=== PATIENT | female | born 1940 | race Caucasian/White ===

== ENCOUNTER 2022-08-29 19:19 | Inpatient (IN) | payer MEDICARE ==
[~2022-08-29] VITALS: Ht 152.4 cm; Wt 35.4 kg
[~2022-08-29 19:19] MED LIST: ACET650T11 PO; ALBU2.5V13 NEB; ALPR0.255 PO; ESCI5TAB PO; FLUT1DIS28 IH; IPRA0.2S18 IH; MOME17SP; NICO1PAT28 TD; PANT40SU PO; SIMV20TA2 PO; TIOT18CA3 IH; TRAZ-257 PO; UREA57CR MC
--- NOTE | 2022-08-29 19:55 | NUR ---
PATIENT BIBSON C/O CONFUSION, POOR PO INTAKE, DIARRHEA FOR PAST FEW DAYS. PATIENT IS A/O X1, RR EVEN AND UNLABORED. PATIENT TAKEN TO ER BED 02. PATIENT CONNECTED TO CARDIAC AND POX MONITORS.
[2022-08-29] MEDS ORDERED: IV NS 0.9% 500 ML BAG IV ONE (20:30)
--- NOTE | 2022-08-29 20:36 | NUR ---
XRAY DONE AT BEDSIDE
--- NOTE | 2022-08-29 20:36 | NUR ---
COVID SWAB AND INFLUENZA SWAB DONE AND SENT TO LAB
[2022-08-29 20:41] LABS: HEMATOCRIT 38 % (33-45); HEMOGLOBIN 11.8 g/dL (11.5-14.8); LYMPHOCYTES # (AUTO) 0.7 K/uL (0.8-4.8); LYMPHOCYTES % (AUTO) 5.1 % (20.0-44.0); MEAN CORPUSCULAR HGB CONC 31 g/dl (31.0-36.0); MEAN CORPUSCULAR VOLUME 95 fL (82-100); MONOCYTES # (AUTO) 0.3 K/uL (0.1-1.30); MONOCYTES % (AUTO) 2.1 % (2.0-12.0); NEUTROPHILS # (AUTO) 13.5 K/uL (1.8-8.9); NEUTROPHILS % (AUTO) 92.8 % (43.0-81.0); PLATELET COUNT (AUTO) 175 K/uL (150-450); RED BLOOD CELL COUNT(AUTO) 4.04 MIL/uL (4.0-5.2); WHITE BLOOD COUNT (AUTO) 14.6 K/uL (4.3-11.0)
--- NOTE | 2022-08-29 20:54 | NUR ---
IV CANNULA G22 INSERTED ON LEFT FA. IVF STARTED.
--- NOTE | 2022-08-29 20:56 | NUR ---
URINE SPECIMEN SENT TO LAB
[2022-08-29 21:24] LABS: CALCIUM, SERUM 9.4 mg/dL (8.5-10.1); CARBON DIOXIDE 31 mmol/L (21-32); CHLORIDE 110 mmol/L (98-107); CREATININE 1.4 mg/dL (0.6-1.3); GLUCOSE 259 mg/dL (74-106); SODIUM SERUM 151 mmol/L (136-145); UREA NITROGEN, BLOOD 62 mg/dL (7-18)
[2022-08-29] MEDS ORDERED: AZITHROMYCIN 500 MG in IV D5W 250 ML IV ONE (21:30)
[2022-08-29] MEDS ORDERED: VANCOMYCIN 1 GM in IV D5W 250 ML IV ONE (21:30)
[2022-08-29] MEDS ORDERED: PIPERACILLIN /TAZOBACTAM 3.375 G in IV D5W 50 ML IV ONE (21:30)
[2022-08-29 21:37] LABS: BILIRUBIN,URINE NEGATIVE (NEGATIVE); COLOR,URINE YELLOW (YELLOW); LEUKOCYTE ESTERASE ,URINE NEGATIVE (NEGATIVE); NITRITE, URINE NEGATIVE (NEGATIVE); PH,URINE 5.5 (5.0-8.0); PROTEIN,URINE 1+ mg/dl (NEGATIVE); UGLUCOSE NEGATIVE (NEGATIVE)
[2022-08-29] MEDS ORDERED: AZITHROMYCIN 500 MG VIAL ONE (21:50)
[2022-08-29] MEDS ORDERED: PIPERACILLIN /TAZOBACTAM 3.375 G VIAL IV ONE (21:51)
[2022-08-29] MEDS ORDERED: ALBUTEROL FS 2.5 MG/0.5 ML VIAL.NEB NEB PRN (22:00)
[2022-08-29] MEDS ORDERED: IV D5/0.45 NACL 1,000 ML IV ONE (22:00)
[2022-08-29] MEDS ORDERED: ACETAMINOPHEN 325 MG TABLET PO PRN (22:00)
[2022-08-29] MEDS ORDERED: ONDANSETRON HCL/PF 4 MG/2 ML VIAL IVP PRN (22:00)
[2022-08-29 22:19] LABS: BACTERIA,URINE None seen /HPF (None Seen); RBC,URINE 0-2 /HPF (0-2); SQUAMOUS EPITHELIAL CELL,UR 0-2 /HPF (None Seen); WBC,URINE 0-2 /HPF (0-3)
[2022-08-29] MEDS ORDERED: VANCOMYCIN 1 GM VIAL ONE (22:21)
[2022-08-29 22:24] LABS: BAND % (MANUAL) 3 % (0.0-5.0); LYMPHOCYTES % (MANUAL) 5 % (16-48); MONOCYTES % (MANUAL) 1 % (0-11.0); NEUTROPHILS % (MANUAL) 91 (42-76)
--- NOTE | 2022-08-29 22:33 | NUR ---
MINK FARMER AT PT'S BEDSIDE
[2022-08-29 23:58] LABS: ALANINE AMINOTRANSFERASE 33 U/L (12-78); ALBUMIN 1.9 g/dL (3.4-5.0); ALKALINE PHOSPHATASE 124 U/L (46-116); ASPARTATE AMINOTRANSFERASE 55 U/L (15-37); BILIRUBIN,DIRECT 0.2 mg/dL (0.0-0.2); BILIRUBIN,TOTAL 0.4 mg/dL (0.2-1.0)
[2022-08-29 23:59] LABS: TOTAL PROTEIN, SERUM 7.9 g/dL (6.4-8.2)
--- NOTE | 2022-08-30 02:19 | NUR ---
REPORT GIVEN TO JANETT JANUARY.
[2022-08-30 02:30] VITALS: BP 100/57
[2022-08-30] MEDS ORDERED: IPRATROPIUM NEB FS 0.5 MG/2.5 ML AMPUL.NEB NEB PRN (02:30)
[2022-08-30 02:35] VITALS: BP 100/57
--- NOTE | 2022-08-30 02:57 | NUR ---
TRANSFERRED TO ROOM
--- NOTE | 2022-08-30 03:00 | NUR ---
ASSET PROTECTION AGENT OPENING NOTES RECEIVED PATIENT FROM ED VIA [facility] AT 0228 UNDER THE CARE OF SHANNAN HART NP WITH DX OF SEPTIC SHOCK. PATIENT IS A/O X1, CONFUSED, HAS UNCLEAR SPEECH AND A POOR HISTORIAN. INFORMATION IS TAKEN FROM PREVIOUS MEDICAL RECORD. PATIENT'S BREATHING IS EVEN AND NON-LABORED ON ROOM AIR, HOWEVER, HER SPO2 IS GOING DOWN TO 80's. PLACED ON 5LPM VIA NASAL CANULA AND SATURATING AROUND 88%-91%. NOT IN APPARENT DISTRESS. PATIENT DOES NOT C/O PAIN BUT STARTS SCREAMING WHEN BEING MOVED OR TOUCHED. HAS LEFT FOREARM IV ACCESS #22G AND SALINE LOCKED. NO S/S OF INFILTRATION NOTED. V/S TAKEN AND SKIN ASSESSMENT DONE. HAS AN OPEN PRESSURE INJURY IN THE RIGHT LOWER BACK. HAD BOWEL MOVEMENT WITH VERY SOFT AND BROWN STOOL. HAS IN AND OUT CATHETER DRAINING CLEAR DMITRY URINE TO BAG. ALL BELONGINGS ACCOUNTED FOR. ORIENTED PATIENT TO UNIT AND STAFF. SAFETY PRECAUTIONS IN PLACE: BED LOCKED AND IN LOW POSITION, SIDE RAILS UP X3, BED ALARM ON, CALL LIGHT WITHIN REACH. WILL CONTINUE POC.
--- NOTE | 2022-08-30 03:37 | NUR ---
SCALER NOTES PER DENISE OF CARDINAL PX, ZOSYN IS Q6H.
[2022-08-30] MEDS ORDERED: PIPERACILLIN /TAZOBACTAM 3.375 G VIAL IV ONE (03:42)
[2022-08-30] MEDS ORDERED: ZOSYN IVPB 3.375 G in IV D5W 50ml IV ONE (04:00)
[2022-08-30 05:00] VITALS: BP 92/53
[2022-08-30 07:17] LABS: ALBUMIN 1.6 g/dL (3.4-5.0); ALKALINE PHOSPHATASE 104 U/L (46-116); ASPARTATE AMINOTRANSFERASE 50 U/L (15-37); BILIRUBIN,TOTAL 0.4 mg/dL (0.2-1.0); CALCIUM, SERUM 8.7 mg/dL (8.5-10.1); CARBON DIOXIDE 32 mmol/L (21-32); CHLORIDE 112 mmol/L (98-107); CREATININE 1.2 mg/dL (0.6-1.3); GLUCOSE 156 mg/dL (74-106); MAGNESIUM 2.5 mg/dL (1.8-2.4); PHOSPHORUS 3.1 mg/dL (2.5-4.9); SODIUM SERUM 151 mmol/L (136-145); TOTAL PROTEIN, SERUM 6.7 g/dL (6.4-8.2); UREA NITROGEN, BLOOD 54 mg/dL (7-18)
[2022-08-30 07:20] LABS: THYROID STIMULATING HORMONE 1.777 uIU/mL (0.358-3.74)
--- NOTE | 2022-08-30 07:24 | NUR ---
FIBERGLASS INSULATION INSTALLER CLOSING NOTES PATIENT IN BED ASLEEP, EASY TO AROUSE. A/O X1, DIFFICULT TO UNDERSTAND SPEECH. NEEDS FREQUENT REORIENTATION. NOT IN CARDIAC OR RESPIRATORY DISTRESS. ON O2 AT 5LPM VIA NASAL CANULA. AFEBRILE. ON TELE MONITOR READING SINUS RHYTHM WITH OCCASIONAL PAC AT 87BPM. HAS LEFT FOREARM IV ACCESS #22G WITH D5 1/2 NS RUNNING AT 75 ML HR. INTACT, PATENT AND FLUSHING. OFFLOADED AND REPOSITIONED. ALL DUE MEDS GIVEN AND NEEDS ATTENDED. SAFETY PRECAUTIONS MAINTAINED. WILL ENDORSE TO NEXT SHIFT FOR DIMITRI.
[2022-08-30 07:26] LABS: ALANINE AMINOTRANSFERASE 26 U/L (12-78)
--- NOTE | 2022-08-30 07:30 | NUR ---
RN MS TELE OPENING NOTES PATIENT IN BED AND AWAKE, A/O X1, PT WOULD RESPOND TO QUESTIONS BUT MOSTLY INCOMPREHENSIBLE. NOT IN CARDIAC OR RESPIRATORY DISTRESS. ON O2 AT 5LPM VIA NASAL CANULA BUT RT RECOMMENDED TO PUT BACK TO 2LPM. AFEBRILE. ON TELE MONITOR READING SINUS RHYTHM WITH OCCASIONAL PAC AT 82BPM. HAS LEFT FOREARM IV ACCESS #22G WITH D5 AND 0.45% SODIUM CHLORIDE RUNNING AT 75 ML HR. INTACT, PATENT AND FLUSHING. SAFETY PRECAUTIONS MAINTAINED. WILL CONTINUE TO MONITOR.
[2022-08-30 08:00] VITALS: BP 85/53
[2022-08-30] MEDS: PANTOPRAZOLE 40 MG VIAL IV SCH (08:16)
[2022-08-30 09:11] LABS: BASOPHILS % (AUTO) 0.1 % (0.0-2.0); HEMATOCRIT 34 % (33-45); HEMOGLOBIN 10.3 g/dL (11.5-14.8); LYMPHOCYTES # (AUTO) 0.7 K/uL (0.8-4.8); LYMPHOCYTES % (AUTO) 5.1 % (20.0-44.0); MEAN CORPUSCULAR HGB CONC 31 g/dl (31.0-36.0); MEAN CORPUSCULAR VOLUME 95 fL (82-100); MONOCYTES # (AUTO) 0.2 K/uL (0.1-1.30); MONOCYTES % (AUTO) 1.9 % (2.0-12.0); NEUTROPHILS # (AUTO) 11.9 K/uL (1.8-8.9); NEUTROPHILS % (AUTO) 92.9 % (43.0-81.0); PLATELET COUNT (AUTO) 142 K/uL (150-450); RED BLOOD CELL COUNT(AUTO) 3.54 MIL/uL (4.0-5.2); WHITE BLOOD COUNT (AUTO) 12.9 K/uL (4.3-11.0)
--- NOTE | 2022-08-30 09:11 | NUR ---
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 DR REMA MENA AND DR DC CALLED FOR SURGICAL AND DPM CONSULTS. DISCUSSED SKIN PROTECTION AND WOUND CARE OF TORSO WOUNDS WITH NURSING STAFF. DIETARY CONSULT IN PLACE. MD IN AGREEMENT WITH PLAN OF CARE.
[2022-08-30] MEDS ORDERED: ALEN70TA80 PO (09:15)
[2022-08-30] MEDS ORDERED: DONE10TA44 PO (09:15)
[2022-08-30] MEDS ORDERED: ROSU10TA29 PO (09:15)
[2022-08-30] MEDS ORDERED: FOLI0.8T3 PO (09:15)
[2022-08-30] MEDS: Z GUARD REMEDY 4 OZ OINT TP PRN (11:48)
[2022-08-30] MEDS: Z GUARD REMEDY 4 OZ OINT TP SCH (11:49)
[2022-08-30] MEDS ORDERED: PIPERACILLIN /TAZOBACTAM 3.375 G in IV D5W 50 ML IV SCH (12:00)
[2022-08-30] MEDS: PROSOURCE / PROSTAT (PYXIS) 30 ML UDC GT SCH ×2 (13:46→16:22)
[2022-08-30] MEDS: CEFTRIAXONE 2 G in IV D5W 100 ML IV SCH (13:46)
[2022-08-30] MEDS: ENSURE ENLIVE 237 ML LIQUID (VANILLA) PO SCH ×2 (15:10→17:14)
[2022-08-30 16:00] VITALS: BP 113/53
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
[2022-08-30] MEDS: IV D5/0.45 NACL 1,000 ML IV PRN (18:13)
[2022-08-30] MEDS: MEGESTROL ACETATE SUSP 400 MG/10 ML UDC PO SCH (18:14)
--- NOTE | 2022-08-30 18:14 | NUR ---
TERRAZZO WORKER APPRENTICE NOTES RECEIVED ORDER FROM DR. FOX TO CONTINUE IV FLUIDS AND TO START MEGACE DAILY, NOTED AND CARRIED OUT.
--- NOTE | 2022-08-30 18:53 | NUR ---
RN MS TELE CLOSING NOTES PATIENT IN BED AND AWAKE, A/O X1, PT RESPONDS TO SIMPLE INSTRUCTIONS BUT UNABLE TO ENGAGE IN MEANINGFUL CONVERSATION. PT FINISH 1/4 OF HER DINNER MEAL. NOT IN CARDIAC OR RESPIRATORY DISTRESS. ON O2 AT 2LPM VIA NC. AFEBRILE. ON TELE MONITOR READING SINUS RHYTHM WITH OCCASIONAL PAC AT 87 BPM. HAS LEFT FOREARM IV ACCESS #22G WITH D5 AND 0.45% SODIUM CHLORIDE RUNNING AT 75 ML HR. INTACT, PATENT AND FLUSHING. SAFETY PRECAUTIONS MAINTAINED. WILL ENDORSE TO CREDENTIALING COORDINATOR RN FOR DIMITRI
[2022-08-30 20:00] VITALS: BP 115/65
[2022-08-30] MEDS: VANCOMYCIN 500 MG in IV D5W 100 ML IV SCH (23:02)
[2022-08-31] VITALS: BP 117/66
--- NOTE | 2022-08-31 00:39 | NUR ---
RN NOTES: PATIENT IN BED RESTING, A/O X1, PT RESPONDS TO SIMPLE INSTRUCTIONS BUT UNABLE TO ENGAGE IN MEANINGFUL CONVERSATION. NOT IN CARDIAC OR RESPIRATORY DISTRESS. ON O2 AT 2LPM VIA NC. AFEBRILE. ON TELE MONITOR READING SINUS RHYTHM WITH OCCASIONAL PAC AT 84 BPM. HAS LEFT FOREARM IV ACCESS #22G WITH D5 AND 0.45% SODIUM CHLORIDE RUNNING AT 75 ML HR. INTACT, PATENT AND FLUSHING. SAFETY PRECAUTIONS MAINTAINED. WILL CONTINUE WITH PLAN OF CARE.
[2022-08-31 04:38] VITALS: BP 120/72
[2022-08-31] MEDS: IV D5/0.45 NACL 1,000 ML IV PRN ×2 (06:23→23:07)
[2022-08-31 07:29] LABS: CALCIUM, SERUM 8.5 mg/dL (8.5-10.1); CHLORIDE 111 mmol/L (98-107); GLUCOSE 110 mg/dL (74-106); POTASSIUM 3.4 mmol/L (3.5-5.1); SODIUM SERUM 149 mmol/L (136-145); UREA NITROGEN, BLOOD 44 mg/dL (7-18)
--- NOTE | 2022-08-31 07:30 | NUR ---
RN OPENING NOTES: PATIENT IN BED RESTING, A/O X1, PT RESPONDS TO SIMPLE INSTRUCTIONS BUT UNABLE TO ENGAGE IN MEANINGFUL CONVERSATION. NOT IN CARDIAC OR RESPIRATORY DISTRESS. ON O2 AT 2LPM VIA NC. AFEBRILE. ON TELE MONITOR READING SINUS RHYTHM WITH OCCASIONAL PAC AT 81 BPM. HAS LEFT FOREARM IV ACCESS #22G WITH D5 AND 0.45% SODIUM CHLORIDE RUNNING AT 75 ML HR. INTACT, PATENT AND FLUSHING. SAFETY PRECAUTIONS MAINTAINED. WILL CONTINUE TO MONITOR.
[2022-08-31 07:38] LABS: CARBON DIOXIDE 31 mmol/L (21-32)
[2022-08-31 08:00] VITALS: BP 102/63
[2022-08-31] MEDS: MEGESTROL ACETATE SUSP 400 MG/10 ML UDC PO SCH (08:37)
[2022-08-31] MEDS: PANTOPRAZOLE 40 MG VIAL IV SCH (08:37)
[2022-08-31] MEDS: ENSURE ENLIVE 237 ML LIQUID (VANILLA) PO SCH ×3 (08:40→16:48)
[2022-08-31] MEDS: PROSOURCE / PROSTAT (PYXIS) 30 ML UDC GT SCH ×3 (09:36→16:48)
[2022-08-31] MEDS: Z GUARD REMEDY 4 OZ OINT TP SCH (09:38)
[2022-08-31] MEDS ORDERED: POTASSIUM CHLORIDE 20 MEQ POWDER PACKET PO ONE (10:00)
[2022-08-31] MEDS: CEFTRIAXONE 2 G in IV D5W 100 ML IV SCH (13:21)
[2022-08-31 16:00] VITALS: BP 109/61
--- NOTE | 2022-08-31 18:11 | NUR ---
RN CLOSING NOTES: PATIENT AWAKE IN BED A/O X2. NOT IN CARDIAC OR RESPIRATORY DISTRESS. ON O2 AT 2LPM VIA NC. AFEBRILE. ON TELE MONITOR READING SINUS RHYTHM WITH OCCASIONAL PAC AT 70'S BPM. NEW IV ACCESS ON LEFT FA #22G WITH D5 AND 0.45% SODIUM CHLORIDE RUNNING AT 75 ML HR. INTACT, PATENT AND FLUSHING. OBTAINED STOOL SPECIMEN REQUESTED BY LAB STORED IN THE [place] NOTIFIED LAB FOR VOICE DATA COMMUNICATIONS ENGINEER. SAFETY PRECAUTIONS MAINTAINED. BED LOCKED AND IN LOWEST POSITION, SIDE RAILS UP X2. CALL LIGHT IN EASY REACH. WILL ENDORSED TO NEXT SHIFT.
--- NOTE | 2022-08-31 19:30 | NUR ---
noc rn opening received patient in bed, a/ox1. no s/s of apparent distress on 3lpm of o2 via nc. not exhibiting pain via flacc. reading sr with pac 73 bpm. morgan cath draining clear, dark yellow urine. Lt. fa iv access running D5 1/2 ns @75mls/hr. call light within reach. safety in place. will continue with plan of care for patient.
[2022-08-31 20:00] VITALS: BP 110/63
[2022-08-31] MEDS: VANCOMYCIN 500 MG in IV D5W 100 ML IV SCH (23:03)
[2022-09-01] VITALS: BP 98/56
[2022-09-01 05:00] VITALS: BP 116/74
--- NOTE | 2022-09-01 07:31 | NUR ---
noc rn note report given to JANETT Wellington for continuity of patient care.
[2022-09-01 07:35] LABS: CALCIUM, SERUM 8.6 mg/dL (8.5-10.1); CREATININE 0.8 mg/dL (0.6-1.3); POTASSIUM 3.7 mmol/L (3.5-5.1)
--- NOTE | 2022-09-01 07:35 | NUR ---
ms rn received on bed, awake,alert,oriented x4,not in any form of distress, respirations even and unlabored,no sob noted,lungs have crackles bilaterally, abdomen soft,positive bowel sounds,denies pain at this time, repositioned for comfort.
[2022-09-01 08:00] VITALS: BP 112/64
[2022-09-01] MEDS: PROSOURCE / PROSTAT (PYXIS) 30 ML UDC GT SCH ×3 (08:22→18:24)
[2022-09-01] MEDS: PANTOPRAZOLE 40 MG VIAL IV SCH (08:22)
[2022-09-01] MEDS: MEGESTROL ACETATE SUSP 400 MG/10 ML UDC PO SCH (08:22)
[2022-09-01] MEDS: ENSURE ENLIVE 237 ML LIQUID (VANILLA) PO SCH ×3 (08:27→18:28)
[2022-09-01] MEDS: Z GUARD REMEDY 4 OZ OINT TP SCH (08:28)
--- NOTE | 2022-09-01 08:32 | NUR ---
ms schmidt breakfast served,due meds given,tolerated well.
[2022-09-01 12:00] VITALS: BP 100/69
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
[2022-09-01] MEDS: CEFTRIAXONE 2 G in IV D5W 100 ML IV SCH (12:28)
--- NOTE | 2022-09-01 14:00 | NUR ---
ms rn put patient on specialty mattress, no distress noted.
[2022-09-01 16:00] VITALS: BP 116/67
--- NOTE | 2022-09-01 19:00 | NUR ---
ms rn on bed, no distress noted.
--- NOTE | 2022-09-01 19:30 | NUR ---
RN OPENING NOTE RECEIVED PATIENT IN BED; AWAKE, A/O X 1. ON O2 INHALATION @ 2 LPM VIA NASAL CANNULA; TOLERATING WELL. NOT IN CARDIAC OR RESPIRATORY DISTRESS. ON TELE MONITOR WITH READING OF SINUS RHYTHM WITH OCCASIONAL PACs HR-74 BPM. WITH IV ACCESS ON LEFT FOREARM 22G; PATENT AND INTACT RUNNING WITH D5 1/2 NS REGULATED @ 75 ML/HR; FLUSHES WELL. WITH ANDREWS CATHETER IN PLACE DRAINING BY GRAVITY TO YELLOW URINE OUTPUT. SAFETY PRECAUTIONS IMPLEMENTED: HEAD OF BED ELEVATED, CALL LIGHT AND TABLE WITHIN REACH, SIDE RAILS UP X 2, BED IN LOWEST LOCKED POSITION. WILL CONTINUE TO MONITOR.
[2022-09-01 20:32] VITALS: BP 92/59
[2022-09-02 00:57] VITALS: BP 98/57
[2022-09-02] MEDS: IV D5/0.45 NACL 1,000 ML IV PRN (05:05)
[2022-09-02 05:13] VITALS: BP 130/78
[2022-09-02 07:12] LABS: CALCIUM, SERUM 9.5 mg/dL (8.5-10.1); CARBON DIOXIDE 36 mmol/L (21-32); CHLORIDE 108 mmol/L (98-107); CREATININE 0.9 mg/dL (0.6-1.3); GLUCOSE 108 mg/dL (74-106); POTASSIUM 3.2 mmol/L (3.5-5.1); SODIUM SERUM 152 mmol/L (136-145); UREA NITROGEN, BLOOD 34 mg/dL (7-18)
--- NOTE | 2022-09-02 07:41 | NUR ---
ADMISSIONS CLERK OPENING NOTES; RECEIVED PATIENT IN BED; AWAKE, A/O X 1. ON O2 INHALATION @ 2 LPM VIA NASAL CANNULA; TOLERATING WELL, NO S/S OF SOB AND ACUTE DISTRESS. TELE MONITOR READS OF SINUS RHYTHM WITH OCCASIONAL PACS AND PVCs, HR-82. NO IV ACCESS NOTED, PER PM RN, PT PULLED OUT IV, MULTIPLE ATTEMPTS AT REINSERTION UNSUCCESSFUL, WILL ASSESS IF MIDLINE IS APPROPRIATE. ANDREWS CATHETER IN PLACE DRAINING, CLEAR YELLOW URINE OUTPUT. SAFETY PRECAUTIONS IMPLEMENTED: HEAD OF BED ELEVATED, CALL LIGHT AND TABLE WITHIN REACH, SIDE RAILS UP X 2, BED IN LOWEST LOCKED POSITION, WILL CONT WITH PLAN OF CARE DURING SHIFT.
--- NOTE | 2022-09-02 07:44 | NUR ---
RN CLOSING NOTE PATIENT IN BED RESTING; AWAKE, A/O X 1. ON O2 INHALATION @ 2 LPM VIA NASAL CANNULA; TOLERATING WELL. NOT IN CARDIAC OR RESPIRATORY DISTRESS. ON TELE MONITOR READING SINUS RHYTHM WITH OCCASIONAL PACs HR-78 BPM. WITH ANDREWS CATHETER IN PLACE DRAINING BY GRAVITY TO YELLOW URINE OUTPUT. SAFETY PRECAUTIONS MAINTAINED: HEAD OF BED ELEVATED, CALL LIGHT AND TABLE WITHIN REACH, SIDE RAILS UP X 2, BED IN LOWEST LOCKED POSITION. ENDORSED TO MORNING SHIFT FOR DIMITRI.
[2022-09-02] MEDS: ENSURE ENLIVE 237 ML LIQUID (VANILLA) PO SCH ×4 (08:00→16:08)
[2022-09-02] MEDS: PANTOPRAZOLE 40 MG/PACK PACK GT SCH ×2 (08:35→09:00)
[2022-09-02] MEDS: MEGESTROL ACETATE SUSP 400 MG/10 ML UDC PO SCH ×2 (08:35→09:00)
[2022-09-02 08:36] VITALS: BP 104/46
[2022-09-02] MEDS: PROSOURCE / PROSTAT (PYXIS) 30 ML UDC GT SCH ×4 (08:36→16:08)
[2022-09-02] MEDS: Z GUARD REMEDY 4 OZ OINT TP SCH (08:36)
[2022-09-02] MEDS ORDERED: POTASSIUM CHLORIDE 20 MEQ POWDER PACKET PO ONE (11:00)
--- NOTE | 2022-09-02 12:15 | NUR ---
MS RN NOTES: PT CAME BACK FROM SURGERY, S/P PEG PLACEMENT AND EGD, ABD BAND IN PLACE, SURGICAL SITE CLEAN, DRY AND INTACT. BP- 90/53, HR-70, O2- 99, RESP- 18, TEMP- 97.8
[2022-09-02] MEDS: CEFTRIAXONE 2 G in IV D5W 100 ML IV SCH (14:20)
[2022-09-02] MEDS: POTASSIUM CL. PREMIX PERIPHER. 50 ML IV SCH ×4 (15:05→18:21)
[2022-09-02 16:29] VITALS: BP 118/92
--- NOTE | 2022-09-02 18:45 | NUR ---
CERAMIC PAINTER CLOSING NOTES: RECEIVED PATIENT IN BED; AWAKE, A/O X 1. ON 2 LPM WITH COOL AEROSOL VIA NASAL CANNULA; TOLERATING WELL, NO S/S OF SOB AND ACUTE DISTRESS. PT DOWNGRADED TO MS. S/P PEG PLACEMENT AND EGD, ABD BAND IN PLACE, G TUBE SITE CLEAN, DRY AND INTACT. IV ACCESS AT L UA ML, #18 RUNNING D51/2 NS @ 75 ML/HR. ANDREWS CATHETER IN PLACE DRAINING, CLEAR YELLOW URINE OUTPUT= ABOUT 200CC DURING SHIFT. SAFETY PRECAUTIONS IMPLEMENTED: HEAD OF BED ELEVATED, CALL LIGHT AND TABLE WITHIN REACH, SIDE RAILS UP X 2, BED IN LOWEST LOCKED POSITION, WILL ENDORSE TO PM SHIFT.
--- NOTE | 2022-09-02 19:15 | NUR ---
MS RN NOTES RECEIVED LAYING ON BED.ON RIGHT SIDE POSITION,A/O X1,BREATHING NON LABORED,O2 2L/NC IN USED TO KEEP O2 SAT ABOVE 90%.S/P PEG PLACEMENT TODAY BY DR GOVEA,ABDOMINAL BINDER IN PLACE FOR SAFETY,PEG OKAY TO USE FOR FEEDING IN THE MORNING.WITH IVF IN PLACE INFUSING AT 75ML/HR RATE ON KONRAD MIDLINE VIA IV PUMP.WITH RIGHT HIP WOUND,DRESSING INTACT AND DRY.ANDREWS CATH IN PLACE DRAINS YELLOWISH URINE OUTPUT.WILL REPOSITION Q 2HOURS PER PROTOCOL.CALL LIGHT IN REACH,NEEDS ANTICIPATED
[2022-09-02 20:00] VITALS: BP 128/57
[2022-09-03] MEDS: IV D5/0.45 NACL 1,000 ML IV PRN ×2 (05:11→20:57)
[2022-09-03 05:59] LABS: BASOPHILS % (AUTO) 0.2 % (0.0-2.0); EOSINOPHILS % (AUTO) 0.4 % (0.0-6.0); HEMATOCRIT 35 % (33-45); HEMOGLOBIN 10.8 g/dL (11.5-14.8); LYMPHOCYTES # (AUTO) 0.9 K/uL (0.8-4.8); LYMPHOCYTES % (AUTO) 17.8 % (20.0-44.0); MEAN CORPUSCULAR HGB CONC 31 g/dl (31.0-36.0); MEAN CORPUSCULAR VOLUME 94 fL (82-100); MONOCYTES # (AUTO) 0.3 K/uL (0.1-1.30); MONOCYTES % (AUTO) 5.5 % (2.0-12.0); NEUTROPHILS % (AUTO) 76.1 % (43.0-81.0); PLATELET COUNT (AUTO) 121 K/uL (150-450); RED BLOOD CELL COUNT(AUTO) 3.68 MIL/uL (4.0-5.2); WHITE BLOOD COUNT (AUTO) 5.2 K/uL (4.3-11.0)
[2022-09-03 06:19] LABS: CALCIUM, SERUM 9.1 mg/dL (8.5-10.1); CREATININE 0.9 mg/dL (0.6-1.3); POTASSIUM 3.2 mmol/L (3.5-5.1)
--- NOTE | 2022-09-03 06:22 | NUR ---
MS RN NOTES LAYING ON BED,MORNING CARE RENDERED,TOLERATED WELL,NO EPISODE OF SOB NOTED,O2 IN USED 2L/NC WITH HUMIDIFIER.REPOSITION PER PROTOCOL.NO DISTRESS.WILL ENDORSE TO DAY NURSE FOR DIMITRI.
--- NOTE | 2022-09-03 07:30 | NUR ---
TIMBER FALLER OPENING NOTES; RECEIVED PATIENT IN BED; AWAKE, A/O X 1. ON O2 INHALATION @ 2 LPM VIA NASAL CANNULA; TOLERATING WELL, NO S/S OF SOB AND ACUTE DISTRESS. IV ACCESS LEFT UPPER ARM ML G#18 SAFETY PRECAUTIONS IMPLEMENTED: HEAD OF BED ELEVATED, CALL LIGHT AND TABLE WITHIN REACH, SIDE RAILS UP X 2,
[2022-09-03 08:00] VITALS: BP 89/52
[2022-09-03] MEDS: ENSURE ENLIVE 237 ML LIQUID (VANILLA) PO SCH ×3 (08:00→17:00)
[2022-09-03] MEDS ORDERED: CEPH500C2 PO (09:33)
[2022-09-03] MEDS: MEGESTROL ACETATE SUSP 400 MG/10 ML UDC PO SCH (09:45)
[2022-09-03] MEDS: PANTOPRAZOLE 40 MG/PACK PACK GT SCH (09:46)
[2022-09-03] MEDS: POTASSIUM CHLORIDE 20 MEQ POWDER PACKET GT SCH (09:46)
[2022-09-03] MEDS: PROSOURCE / PROSTAT (PYXIS) 30 ML UDC GT SCH ×3 (09:47→17:45)
[2022-09-03] MEDS: Z GUARD REMEDY 4 OZ OINT TP SCH (09:49)
[2022-09-03] MEDS: CEFTRIAXONE 2 G in IV D5W 100 ML IV SCH (12:43)
[2022-09-03] MEDS: JEVITY 1.2 CAL 1,000 ML BOTTLE GT PRN (12:43)
[2022-09-03 16:00] VITALS: BP 99/67
--- NOTE | 2022-09-03 19:35 | NUR ---
NEWSCAST DIRECTOR CLOSING NOTES: PATIENT IN BED; AWAKE, A/O X 1. ON 2 LPM WITH VIA NASAL CANNULA; TOLERATING WELL, NO S/S OF SOB AND ACUTE DISTRESS. PT ON PEG, GT FEEDING STARTED TODAY, G TUBE SITE CLEAN, DRY AND INTACT. IV ACCESS AT L UA ML, #18 RUNNING D51/2 NS @ 75 ML/HR. ANDREWS CATHETER IN PLACE DRAINING, SAFETY PRECAUTIONS IMPLEMENTED: HEAD OF BED ELEVATED, CALL LIGHT AND TABLE WITHIN REACH, SIDE RAILS UP X 2, BED IN LOWEST LOCKED
[2022-09-03 20:00] VITALS: BP 103/70
--- NOTE | 2022-09-03 20:00 | NUR ---
RN OPENING NOTES: RECEIVED PATIENT AWAKE IN BED, BED IN LOW POSITION, CALL LIGHTS WITHIN REACH, NO COMPLAIN OF PAIN AND DISCOMFORT AT THIS TIME, ON O2 INHALATION AT 2LPM VIA NASAL CANULA NO SOB WAS OBSERVED, ON G TUBE FEEDING OF JEVITY 1.2@40ML/HR INFUSING WELL, HOB REMAIN AT 45 DEGREE AT ALL TIME IV LINE AT KONRAD ML WITH ONGOING D5 1/2 LP300VL/HR INFUSING WELL, PATIENT ON ANDREWS CATHETER-100CC URIEN OUTPUT, PATIENT KEPT CLEAN AND DRY ALL NEEDS MET WILL CONTINUE TO MONITOR
--- NOTE | 2022-09-04 06:41 | NUR ---
MS RN CLOSING NOTES: PATIENT SLEEP IN BED COMFORTABLY, BED IN LOW POSITION, CALL LIGHTS WITHIN REACH, NO COMPLAIN OF PAIN AND DISCOMFORT AT THIS TIME, ON O2 INHALATION AT 2LPM SATURATING WELL, NO SOB WAS OBSERVED,ON G TUBE FEEDING OF JEVITY 1.2 AT 40ML/HR INFUSING WELL, PATIENT KEPT CLEAN AND DRY ALL NEEDS MET ENDORSETO INCOMING SHIFT.
[2022-09-04 06:53] LABS: BASOPHILS % (AUTO) 0.3 % (0.0-2.0); EOSINOPHILS % (AUTO) 1.1 % (0.0-6.0); HEMATOCRIT 31 % (33-45); HEMOGLOBIN 9.9 g/dL (11.5-14.8); LYMPHOCYTES # (AUTO) 0.9 K/uL (0.8-4.8); MEAN CORPUSCULAR HGB CONC 32 g/dl (31.0-36.0); MEAN CORPUSCULAR VOLUME 93 fL (82-100); MONOCYTES # (AUTO) 0.3 K/uL (0.1-1.30); MONOCYTES % (AUTO) 7.5 % (2.0-12.0); NEUTROPHILS # (AUTO) 3.1 K/uL (1.8-8.9); NEUTROPHILS % (AUTO) 71.1 % (43.0-81.0); PLATELET COUNT (AUTO) 118 K/uL (150-450); RED BLOOD CELL COUNT(AUTO) 3.37 MIL/uL (4.0-5.2); WHITE BLOOD COUNT (AUTO) 4.4 K/uL (4.3-11.0)
[2022-09-04 07:02] LABS: CALCIUM, SERUM 8.7 mg/dL (8.5-10.1); CREATININE 0.7 mg/dL (0.6-1.3); MAGNESIUM 1.9 mg/dL (1.8-2.4); PHOSPHORUS 2.5 mg/dL (2.5-4.9); POTASSIUM 3.3 mmol/L (3.5-5.1)
--- NOTE | 2022-09-04 07:30 | NUR ---
RN OPENING NOTES: RECEIVED AWAKE IN BED, BED IN LOW POSITION, CALL LIGHTS WITHIN REACH, NO COMPLAIN OF PAIN AND DISCOMFORT AT THIS TIME, ON O2 INHALATION AT 2LPM VIA NASAL CANULA NO SOB WAS OBSERVED, ON G TUBE FEEDING OF JEVITY 1.2@40ML/HR INFUSING WELL, HOB REMAIN AT 45 DEGREE AT ALL TIME IV LINE AT KONRAD ML WITH ONGOING D5 1/2 VX856SM/HR INFUSING WELL, PATIENT ON ANDREWS CATHETER, PATIENT KEPT CLEAN AND DRY ALL NEEDS MET WILL CONTINUE TO MONITOR
[2022-09-04 08:00] VITALS: BP 124/57
[2022-09-04] MEDS: PANTOPRAZOLE 40 MG/PACK PACK GT SCH (09:25)
[2022-09-04] MEDS: POTASSIUM CHLORIDE 20 MEQ POWDER PACKET GT SCH (09:26)
[2022-09-04] MEDS: PROSOURCE / PROSTAT (PYXIS) 30 ML UDC GT SCH ×3 (09:26→18:02)
[2022-09-04] MEDS: ENSURE ENLIVE 237 ML LIQUID (VANILLA) PO SCH ×3 (09:26→16:22)
[2022-09-04] MEDS: Z GUARD REMEDY 4 OZ OINT TP SCH (09:26)
[2022-09-04] MEDS: MEGESTROL ACETATE SUSP 400 MG/10 ML UDC PO SCH (09:26)
[2022-09-04 16:00] VITALS: BP 131/39
[2022-09-04] MEDS: Potassium Chloride 20 MEQ in IV D5W 1,000 ML IV SCH (16:30)
[2022-09-04] MEDS ORDERED: MULT-754 PO (16:32)
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
--- NOTE | 2022-09-04 17:00 | NUR ---
HOLD OFF POTASSIUM CHLORIDE 20 MEQ IN IV 1000 ML D5W, PHARMACY INFORMED, ORDERED AT 1640 AWAITING CONFIRMATION FROM MD MILLER'S ORDER .PT WAS GIVEN 40 MEQ POTASSIUM CHLORIDE, (2 PACKETS) AT 0926 Addendum: 09/04/22 at 1841 by JOSEPH HERNANDEZ JR, RN BASSEM ELDER WAS MADE AWARE
[2022-09-04 17:21] LABS: LYMPHOCYTES % (MANUAL) 19 % (16-48); MONOCYTES % (MANUAL) 9 % (0-11.0); NEUTROPHILS % (MANUAL) 72 (42-76)
--- NOTE | 2022-09-04 19:30 | NUR ---
MS RN CLOSING NOTES: PATIENT COMFORTABLY AWAKE IN BED IN LOW POSITION, CALL LIGHTS WITHIN REACH, NO COMPLAIN OF PAIN AND DISCOMFORT AT THIS TIME, ON O2 INHALATION AT 2LPM SATURATING WELL, NO SOB WAS OBSERVED,ON G TUBE FEEDING OF JEVITY 1.2 AT 40ML/HR INFUSING WELL, PATIENT KEPT CLEAN AND DRY ALL NEEDS MET, SAFETY PRECAUTIONS IN PLACED ENDORSED TO MATH SPECIALIST RN.
[2022-09-04 20:00] VITALS: BP 107/57
--- NOTE | 2022-09-04 20:00 | NUR ---
MS RN OPENING NOTES: RECEIVED PATIENT AWAKE IN BED, BED IN LOW POSITION CALL LIGHTS WITHIN REACH, NO COMPLAIN OF PAIN AND DISCOMFORT AT THIS TIME ON O2 INHALTION AT 2LPM SATURATING WELL, PATIENT ON G TUBE FEEDING OF JEVITY 1.2@40ML/HR INFUSING WELL, HOB TO REMAIN 45 DEGREE AT ALL TIME, ON ANDREWS CATHETER, PATIENT KEPT CLEAN AND DRY ALL NEEDS MET WILL CONTINUE TO MONITOR.
[2022-09-04] MEDS: JEVITY 1.2 CAL 1,000 ML BOTTLE GT PRN (20:06)
--- NOTE | 2022-09-05 | NUR ---
MS RN NOTES GT FLUSHED WITH 200ML H2O,NO RESIDUAL NOTED.HOB ELEVATED FOR ASPIRATION PRECAUTION
[2022-09-05] MEDS: Potassium Chloride 20 MEQ in IV D5W 1,000 ML IV SCH (06:27)
--- NOTE | 2022-09-05 06:37 | NUR ---
MS RN CLOSING NOTES: PATIENT SLEEP IN BED COMFORTABLY, AROUSABLE TO VERBAL STIMULI, BED IN LOW POSITION, CALL LIGHTS WITHIN REACH, NO COMPLAIN OF PAIN AND DISCOMFORT AT THIS TIME, ON O2 INHALATION AT 2LPM SATURATING WELL, ON G TUBE FEEDING OF 40ML/HR INFUSING WELL, PATIENT KEPT CLEAN AND DRY ALL NEEDS MET ENDORSE TO INCOMING SHIFT.
--- NOTE | 2022-09-05 07:25 | NUR ---
MS RN OPENING NOTES: RECEIVED PATIENT ASLEEP IN BED AND AROUSABLE , A/O X 1 , NO SOB OR DISTRESS NOTED , NO C/O OF PAIN AND DISCOMFORT, IV ACCESS ON THE KONRAD ML #18 WITH D5 WATER WITH KCL 20 MEQ @75 ML /HR . PATIENT ON G TUBE FEEDING OF JEVITY 1.2@40ML/HR INFUSING WELL, HOB TO REMAIN 45 DEGREE AT ALL TIME, ON ANDREWS CATHETER, BED IN LOWEST POSITION , SIDE RAILS X 2 AND SAFETY MEASURES PROVIDED , KEPT CLEAN AND DRY ALL NEEDS MET , WILL CONTINUE TO MONITOR.
[2022-09-05 08:00] VITALS: BP 138/59
[2022-09-05] MEDS: ENSURE ENLIVE 237 ML LIQUID (VANILLA) PO SCH ×2 (08:30→12:00)
[2022-09-05] MEDS: MEGESTROL ACETATE SUSP 400 MG/10 ML UDC PO SCH (09:18)
[2022-09-05] MEDS: PANTOPRAZOLE 40 MG/PACK PACK GT SCH (09:19)
[2022-09-05] MEDS: Z GUARD REMEDY 4 OZ OINT TP PRN (09:19)
[2022-09-05] MEDS: POTASSIUM CHLORIDE 20 MEQ POWDER PACKET GT SCH (09:19)
[2022-09-05] MEDS: PROSOURCE / PROSTAT (PYXIS) 30 ML UDC GT SCH ×2 (09:20→12:22)
[2022-09-05] MEDS: Z GUARD REMEDY 4 OZ OINT TP SCH (09:21)
[2022-09-05 09:43] LABS: CALCIUM, SERUM 8.9 mg/dL (8.5-10.1); CARBON DIOXIDE 32 mmol/L (21-32); CHLORIDE 110 mmol/L (98-107); CREATININE 0.6 mg/dL (0.6-1.3); GLUCOSE 133 mg/dL (74-106); POTASSIUM 3.6 mmol/L (3.5-5.1); SODIUM SERUM 149 mmol/L (136-145); UREA NITROGEN, BLOOD 26 mg/dL (7-18)
--- NOTE | 2022-09-05 11:05 | NUR ---
WOUND CARE FOLLOW UP: PT SEEN FOR RE-EVALUATION OF RT HIP DEEP TISSUE INJURY (NOW IN EVOLUTION) AND SACRAL STAGE 4 PRESSURE ULCER WITH SURROUNDING DEEP TISSUE INJURY, PRESENT ON ADMISSION. TREATMENT ORDERS UPDATED AND DISCUSSED WITH NURSING STAFF, ATTENDANT LODGING FACILITIES AND SURGICAL TEAM CURRENTLY ON CASE. PT IS CACHECTIC. PEG TUBE IN PLACE NOW. ANDREWS CATH NOTED. PT IS INCONTINENT OF LOOSE STOOL. DISCUSSED SKIN PROTECTION WITH NURSING STAFF. PT COMBATIVE AT TIMES. MD IN AGREEMENT WITH PLAN OF CARE.
[2022-09-05] MEDS: THERAHONEY GEL 1.5 OZ TUBE TP SCH (12:48)
[2022-09-05] MEDS: DAKINS QUARTER STRENGTH (0.125%) 480 ML BOTTLE TOP SCH (12:48)
[2022-09-05] MEDS ORDERED: JEVITY 1.2 CAL 1,000 ML BOTTLE GT PRN (15:00)
[2022-09-05 16:00] VITALS: BP 108/67
--- NOTE | 2022-09-05 18:46 | NUR ---
MS RN CLOSING NOTES: PATIENT AWAKE IN BED , A/O X 1 , NO SOB OR DISTRESS NOTED , NO C/O OF PAIN AND DISCOMFORT, IV ACCESS ON THE KONRAD ML #18 WITH D5 WATER WITH KCL 20 MEQ @75 ML /HR . DUE MEDS GIVEN ORDERED , PATIENT ON G TUBE FEEDING OF JEVITY 1.2 INCREASED TO 45 ML/HR INFUSING WELL, HOB TO REMAIN 45 DEGREE AT ALL TIME, ON ANDREWS CATHETER WITH 550 CC OUTPUT , BED IN LOWEST POSITION , SIDE RAILS X 2 AND SAFETY MEASURES PROVIDED , KEPT CLEAN AND DRY ALL NEEDS MET , WILL ENDORSED TO NEXT SHIFT .
--- NOTE | 2022-09-05 19:30 | NUR ---
MS RN NOTES RECEIVED ON BED WATCHING TV PROGRAM,A/O X1,BREATHING NON LABORED,O2 IN USED AT 2L/NC TO KEEP O2 SAT ABOVE 90%.PRESENT IVF D5W WITH 20 MEQ KCL INFUSING VIA IV PUMP,SITE PATENT KONRAD MIDLINE.WITH GT FEEDING OF JEVITY 1.2 AT 45ML/HR RATE,TOLERATED WELL,NO RESIDUAL VOLUME NOTED.ANDREWS CATH IN PLACE CLEAR YELLOW OUTPUT.WILL REPOSITION Q 2 HOURS PER PROTOCOL,WILL CONTINUE TO MONITOR STATUS.
[2022-09-05 20:00] VITALS: BP 115/64
[2022-09-05 20:13] VITALS: BP 115/64
--- NOTE | 2022-09-06 05:00 | NUR ---
MS RN NOTES MORNING CARE RENDERED AND REPOSITION.GT FEEDING TOLERATED WELL.NO LOOSE BM,NO VOMITING NOTED.IVF FLUIDS DISCONTINUE THIS MORNING.NO DISTRESS.
[2022-09-06] MEDS: Potassium Chloride 20 MEQ in IV D5W 1,000 ML IV SCH (05:05)
--- NOTE | 2022-09-06 07:20 | NUR ---
RN OPENING NOTE RECEIVED PATIENT IN BED ASLEEP, EASILY AROUSED, NO SIGNS OF ACUTE DISTRESS NOTED. ON O2 INHALATION @ 2LPM VIA N/C, NO DYSPNEA NOTED, BREATHING EVEN AND UNLABORED. NOTED WITH LEFT UPPER ARM MIDLINE #18G, INTACT AND PATENT, SALINE LOCKED. WITH G-TUBE, INTACT AND PATENT, POSITIVE PLACEMENT, NO RESIDUAL NOTED. WITH GT FEEDING OF JEVITY 1.2 @45ML/HR RUNNING, TOLERATING WELL. WITH F/C INTACT, DRAINING CLEAR YELLOW URINE VIA GRAVITY. ASPIRATION AND SAFETY PRECAUTIONS OBSERVED. HOB ELEVATED, BED IN LOWEST AND LOCKED POSITION, SIDE RAILS UP X2, CALLLIGHT PLACED WITHIN EASY REACH. WILL CONTINUE TO MONITOR PATIENT.
[2022-09-06 08:00] VITALS: BP 125/74
[2022-09-06] MEDS: DAKINS QUARTER STRENGTH (0.125%) 480 ML BOTTLE TOP SCH (08:50)
[2022-09-06] MEDS: PANTOPRAZOLE 40 MG/PACK PACK GT SCH (08:50)
[2022-09-06] MEDS: MEGESTROL ACETATE SUSP 400 MG/10 ML UDC PO SCH (08:50)
[2022-09-06] MEDS: THERAHONEY GEL 1.5 OZ TUBE TP SCH (08:50)
[2022-09-06] MEDS: POTASSIUM CHLORIDE 20 MEQ POWDER PACKET GT SCH (08:50)
[2022-09-06] MEDS: Z GUARD REMEDY 4 OZ OINT TP SCH (08:50)
[2022-09-06 16:00] VITALS: BP 125/71
--- NOTE | 2022-09-06 18:36 | NUR ---
RN CLOSING NOTE PATIENT IN BED AWAKE, A/O X1, NO SIGNS OF ACUTE DISTRESS NOTED. REMAINS ON O2 INHALATION @ 2LPM VIA N/C, NO DYSPNEA NOTED, BREATHING EVEN AND UNLABORED. LEFT UPPER ARM MIDLINE #18G, INTACT AND PATENT, SALINE LOCKED. WITH G-TUBE, INTACT AND PATENT, POSITIVE PLACEMENT, NO RESIDUAL NOTED. WITH GT FEEDING OF JEVITY 1.2 @45ML/HR RUNNING, TOLERATED WELL. WITH F/C INTACT, DRAINING CLEAR YELLOW URINE VIA GRAVITY. ASPIRATION AND SAFETY PRECAUTIONS OBSERVED. HOB ELEVATED, BED IN LOWEST AND LOCKED POSITION, SIDE RAILS UP X2, CALL LIGHT PLACED WITHIN EASY REACH. WILL ENDORSE TO NEXT SHIFT FOR CONTINUITY OF CARE.
--- NOTE | 2022-09-06 19:30 | NUR ---
MS RN NOTES RECEIVED ON BED SLEEPING,AROUSABLE TO VERBAL STIMULI,A/O X1,CONFUSED.GT FEEDING AT 45ML/HR RATE IN PROGRESS VIA FEEDING PUMP, NO RESIDUAL VOLUME NOTED,NO SOB,O2 IN USED AT 2-3 L/NC TO KEEP O2 SAT ABOVE 90%.LEFT UPPER ARM MIDLINE INTACT AND PATENT.ANDREWS CATH PLACE DRAIN YELLOW URINE.ON SPECIALTY MATTRESS FOR WOUND MANAGEMENT.DRESSING TO BILATERAL BUTTOCKS INTACT AND DRY. HAD BOWEL MOVEMENT,MODERATE IN AMOUNT,CLEANED AND KEPT DRY.REPOSITION TO COMFORT,KEPT WARM AND COMFORTABLE.WILL CONTINUE TO MONITOR STATUS.
[2022-09-06 20:00] VITALS: BP_SYST 124; BP_DIAS 53; BP_DIAS 70
--- NOTE | 2022-09-07 06:36 | NUR ---
MS RN NOTES LYING ON BED,SLEEP WELL AT NIGHT,GT FEEDING TOLERATED WELL,NO SOB.REPOSITIONED,PLANNED DISCHARGE TODAY.IRONMOLDER TIME 0900AM.IN NO ACUTE DISTRESS.WILL ENDORSE TO DAY NURSE FOR DIMITRI.
--- NOTE | 2022-09-07 07:25 | NUR ---
MS RN OPENING NOTE RECEIVED PT AWAKE AND RESTING IN BED. PT IS A/O X1, REORIENTED PT NEEDED. ON O2 AT 2L/MIN VIA NASAL CANNULA, TOLERATING WELL. NO SOB NOTED. NOT IN ANY SIGN OF RESPIRATORY DISTRESS. IV ACCESS ON KONRAD G#18 MIDLINE INTACT AND PATENT. ANDREWS CATH IN PLACE AND DRAINING WELL. GTUBE INTACT WITH JEVITY 1.2 RUNNING AT 45ML/HR. SAFETY MEASURES IN PLACE: BED IN LOWEST AND LOCKED POSITION, SIDE RAILS UP X3, BED ALARM ON, AND CALL LIGHT WITHIN REACH. WILL CONTINUE TO MONITOR PT.
[2022-09-07 08:00] VITALS: BP 117/96
--- NOTE | 2022-09-07 09:05 | NUR ---
TOWER AIR TRAFFIC CONTROL SPECIALIST NOTE PT DISCHARGED TO HOME WITH HOME HEALTH FOR CONTINUITY OF CARE. PT A/O X1, REORIENTED AND REDIRECTED PT NEEDED. ON O2 AT 2L/MIN, TOLERATING WELL WITH SPO2 AT 97%. NO SOB NOTED. NOT IN ANY SIGN OF RESPIRATORY DISTRESS. VITAL SIGNS TAKEN, STABLE, AND RECORDED. PHOTOGRAPHS OF SKIN ISSUES TAKEN AND FILED IN THE CHART. ALL BELONGINGS ACCOUNTED FOR. DISCHARGED INSTRUCTIONS AND HEALTH TEACHINGS EXPLAINED TO THE PT. PT DOES NOT UNDERSTAND TEACHING AND REINFORCEMENT OF TEACHING NEEDED. IV ACCESS IN [place] MIDLINE REMOVED WITH NO ACTIVE BLEEDING NOTED. DRY PRESSURE DRESSING APPLIED TO SITE. NAME BAND REMOVED. PT'S GTUBE IN PLACE WITH SECURED DRESSING. ANDREWS CATHETER REMOVED WITH NOT ACTIVE BLEEDING NOTED. PT LEFT THE UNIT AT 0900 VIA GURNEY ACCOMPANIED BY 2 EMT VIA AMBULANCE TRANSPORTATION. MD AND CHARGED NURSE AWARE OF DISCHARGED.
--- NOTE | 2022-09-09 13:35 | NUR ---
JAGUAR received call from APS workerDURAN TEL: [phone] who requested pt.'s discharge location. JAGUAR addressed Duran's questions. Duran stated she will initiate her investigation. Noted.
== END 2022-09-07 09:20 | disposition home health service (06) | DRG 871 ==
LOC: ER 19:25 → MED 08-30 01:35 → TELE 08-30 03:14 → MED 09-02 13:25
PROVIDERS: ADMIT Registered Nurse; ATTEND Internal Medicine
PROC: 0DH63UZ Insertion of Feeding Device into Stomach, Percutaneous Approach (ICD-10-PCS; principal; 2022-09-02)
PROC: 05HA33Z Insertion of Infusion Device into Left Brachial Vein, Percutaneous Approach (ICD-10-PCS; 2022-09-02)
DX: A41.9 Sepsis, unspecified organism (principal); E43 Unspecified severe protein-calorie malnutrition; L89.154 Pressure ulcer of sacral region, stage 4; G93.41 Metabolic encephalopathy; J15.9 Unspecified bacterial pneumonia; R65.21 Severe sepsis with septic shock; N17.0 Acute kidney failure with tubular necrosis; J69.0 Pneumonitis due to inhalation of food and vomit; N17.9 Acute kidney failure, unspecified; Z68.1 Body mass index [BMI] 19.9 or less, adult; E87.0 Hyperosmolality and hypernatremia; R64 Cachexia; Z20.822 Contact with and (suspected) exposure to COVID-19; K29.70 Gastritis, unspecified, without bleeding; K21.9 Gastro-esophageal reflux disease without esophagitis; F03.90 Unspecified dementia, unspecified severity, without behavioral disturbance, psychotic disturbance, mood disturbance, and anxiety; J44.9 Chronic obstructive pulmonary disease, unspecified; Z85.3 Personal history of malignant neoplasm of breast; Z90.11 Acquired absence of right breast and nipple; Z79.899 Other long term (current) drug therapy; Z79.51 Long term (current) use of inhaled steroids; F17.200 Nicotine dependence, unspecified, uncomplicated; Y95 Nosocomial condition; R62.7 Adult failure to thrive; E88.09 Other disorders of plasma-protein metabolism, not elsewhere classified; F01.50 Vascular dementia, unspecified severity, without behavioral disturbance, psychotic disturbance, mood disturbance, and anxiety; R19.7 Diarrhea, unspecified; L89.216 Pressure-induced deep tissue damage of right hip; M24.561 Contracture, right knee; M24.562 Contracture, left knee; Z74.09 Other reduced mobility; D69.2 Other nonthrombocytopenic purpura; S81.811A Laceration without foreign body, right lower leg, initial encounter; X58.XXXA Exposure to other specified factors, initial encounter; Y92.9 Unspecified place or not applicable; E86.0 Dehydration; E87.6 Hypokalemia; I10 Essential (primary) hypertension; R13.10 Dysphagia, unspecified
CPT/HCPCS: 36415; 43246; 71045-TC; 80048-TC; 80053-TC; 80076-TC; 80202-TC; 81001; 82962-TC; 83735-TC; 83880; 84100-TC; 84443-TC; 84484-TC; 85025-TC; 86803; 87040-TC; 87081-TC; 87086-TC; 87177; 87209; 87806; 89055; 92507-TC; 92526; 92611-TC; 93307-TC; 97535-TC; A6403; A6407; C9113; C9803; G0378; J0456; J0690; J0696; J2543; J2704; J3370; J3480; J3490; J7030; J7040; J7060; J7070; J7120